=== PATIENT | male | born 1965 | race Caucasian/White ===

== ENCOUNTER 2017-04-25 02:25 | Emergency (ER) | payer BC ==
[2017-04-25 02:31] VITALS: BP 136/88
[2017-04-25] MEDS ORDERED: TETRACAINE HCL 0.5% OPH SOLN 2 ML OU ONE (02:46)
[2017-04-25] MEDS ORDERED: ATROPINE SULFATE 1% OPH SOLN 5 ML BOTTLE OU SCH (03:00)
[2017-04-25] MEDS ORDERED: KETOROLAC TROMETHAMINE 0.45% 4 DROP/0.4 ML DROPERETTE OU ONE (03:00)
[2017-04-25] MEDS ORDERED: POLYMYXIN B SULFATE/TMP OPH SOLN (10 ML/ER DISP) OU PRN (03:01)
[2017-04-25] MEDS ORDERED: ATROPINE SULFATE 1% OPH SOLN 5 ML BOTTLE ONE (03:06)
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
== END 2017-04-25 03:53 | disposition home or self-care (01) ==
LOC: ER 02:25
DX: S05.01XA Injury of conjunctiva and corneal abrasion without foreign body, right eye, initial encounter (principal); T26.12XA Burn of cornea and conjunctival sac, left eye, initial encounter; T26.11XA Burn of cornea and conjunctival sac, right eye, initial encounter; X58.XXXA Exposure to other specified factors, initial encounter
CPT/HCPCS: 99283; J3490